=== PATIENT | female | born 1995 | race African-American/Black ===

== ENCOUNTER 2017-01-04 15:40 | Emergency (ER) | payer SELFPAY ==
[~2017-01-04] VITALS: Ht 147.3 cm; Wt 41.7 kg
[2017-01-04 15:40] VITALS: BP_SYST 98
[2017-01-04] MEDS ORDERED: NS 500 ML IV ONE (15:45)
[2017-01-04 16:17] LABS: BASOPHILS # (AUTO) 0.2 K/uL (0.0-0.2); BASOPHILS % (AUTO) 1.5 % (0.0-2.0); EOSINOPHILS # (AUTO) 0.1 K/uL (0.0-0.4); EOSINOPHILS % (AUTO) 0.9 % (0.0-4.0); HEMATOCRIT 32.1 % (36-48); HEMOGLOBIN 10.6 g/dL (12.0-16.0); LYMPHOCYTES # (AUTO) 1.5 K/uL (1.0-5.5); LYMPHOCYTES % (AUTO) 14.9 % (20.5-51.5); MEAN CORPUSCULAR HEMOGLOBIN 28 pg (27-31); MEAN CORPUSCULAR HGB CONC 33 % (32-36); MEAN CORPUSCULAR VOLUME 85 fL (79.0-98.0); MONOCYTES # (AUTO) 0.7 K/uL (0.0-1.0); MONOCYTES % (AUTO) 6.6 % (1.7-9.3); NEUTROPHILS # (AUTO) 7.6 K/uL (1.8-7.7); NEUTROPHILS % (AUTO) 76.1 % (40.0-70.0); PLATELET COUNT (AUTO) 219 K/uL (130-430); RED BLOOD CELL COUNT(AUTO) 3.79 MIL/uL (4.2-6.2); RED CELL DISTRIBUTION WIDTH 14.2 % (9.0-15.0); WHITE BLOOD COUNT (AUTO) 10.1 K/uL (4.5-11.0)
[2017-01-04 16:42] LABS: CREATININE 0.53 mg/dL (0.55-1.30); POTASSIUM 4.2 mmol/L (3.5-5.1)
[2017-01-04 16:46] LABS: PROTHROMBIN TIME 10.5 SECS (9.5-12.5)
[2017-01-04 16:53] LABS: ALBUMIN 3.1 g/dL (3.4-4.8); TOTAL BILIRUBIN 0.4 mg/dL (0.0-1.0); TOTAL PROTEIN, SERUM 6.7 g/dL (6.4-8.3)
[2017-01-04 16:57] LABS: BILIRUBIN,URINE NEGATIVE (NEGATIVE); BLOOD, URINE NEGATIVE (NEGATIVE); COLOR,URINE YELLOW (YELLOW); GLUCOSE,URINE NEGATIVE (NEGATIVE); KETONES,URINE NEGATIVE (NEGATIVE); LEUKOCYTE ESTERASE ,URINE NEGATIVE (NEGATIVE); NITRITE, URINE NEGATIVE (NEGATIVE); PROTEIN URINE NEGATIVE (NEGATIVE); UROBILINOGEN,URINE 0.2 (0.2-1.0)
[2017-01-04 17:08] LABS: CLARITY/URINE HAZY (CLEAR)
[2017-01-04 17:17] LABS: BACTERIA,URINE MODERATE /HPF (None Seen); MUCUS,URINE 1+ /LPF (None Seen); RBC,URINE 0-3 /HPF (0-3)
[2017-01-04] MEDS ORDERED: NITROFURANTOIN MONOHYD/M-CRYST 100 MG CAPSULE PO ONE (17:45)
== END 2017-01-04 19:06 | disposition home or self-care (01) ==
LOC: SED 15:40
DX: O26.892 Other specified pregnancy related conditions, second trimester (principal); R55 Syncope and collapse; O23.42 Unspecified infection of urinary tract in pregnancy, second trimester; Z3A.15 15 weeks gestation of pregnancy
CPT/HCPCS: 36415; 76805; 80053; 81000; 84484; 84703; 85025; 85610; 85730; 87086; 93005; 96360; 99285; J7040

== ENCOUNTER 2017-04-29 20:09 | Observation (INO) | payer MEDICAID ==
[~2017-04-29] VITALS: Ht 147.3 cm; Wt 50.3 kg
[2017-04-29] MEDS ORDERED: TERBUTALINE SULFATE 1 MG/ML VIAL SUBCUT ONE (21:00)
[2017-04-29 23:01] VITALS: BP_SYST 107
== END 2017-04-29 22:35 | disposition home or self-care (01) ==
LOC: SPU 20:09
PROVIDERS: ADMIT Obstetrics & Gynecology; ATTEND Obstetrics & Gynecology
DX: O26.893 Other specified pregnancy related conditions, third trimester (principal); R10.31 Right lower quadrant pain; Z3A.31 31 weeks gestation of pregnancy
CPT/HCPCS: 59025; 81002; G0378; J3105; 59899; 96372